=== PATIENT | female | born 1940 | race Caucasian/White ===

== ENCOUNTER 2023-01-11 09:49 | Day surgery (SDC) | payer OTHER, SELFPAY ==
[2023-01-01 13:00] VITALS: BMI 23.9
--- NOTE | 2023-01-11 06:00 | DI.RAD.S_ITS ---
PROCEDURE: XR KNEE RT 1TO2V INDICATIONS: LEFT TOTAL KNEE TECHNIQUE: 2 view(s) of the knee acquired. COMPARISON: None. FINDINGS: Bones: Patient is status post knee joint arthroplasty. Hardware components are in expected positions. Visualized bony structures are intact. Soft tissues: Overlying postoperative changes are noted. IMPRESSION: Expected appearance post right knee arthroplasty. Dictated by: Emilee Pugh M.D. on 01/11/2023 at 16:22 Approved by: Emilee Pugh M.D. on 01/11/2023 at 16:23
[2023-01-11] MEDS: ACETAMINOPHEN 325 MG TABLET 975 MG PO (10:03)
[2023-01-11] MEDS: CELECOXIB 200 MG CAPSULE PO (10:03)
[2023-01-11] MEDS: LACTATED RINGERS 1,000 ML 42 ML IV ×2 (10:04→12:52)
[2023-01-11 10:23] VITALS: BP 159/80; PULSE 79; RESP 16; TEMP 36.7; O2SAT 97; BMI 23.9
--- NOTE | 2023-01-11 11:00 | PM.PREOP ---
Pre-operative Note Interval Note History & Physical reviewed/Exam performed by Physician: Yes Changes to H&P: No
--- NOTE | 2023-01-11 11:03 | PM.PREOP ---
Pre-operative Note Interval Note History & Physical reviewed/Exam performed by Physician: Yes Changes to H&P: No
--- NOTE | 2023-01-11 11:21 | PM.OP.1 ---
Operative Date/Time/Diagnoses Date of procedure: 01/11/23 Time of procedure: 12:00 Pre-op diagnosis: Right knee arthritis Post-op diagnosis: same Procedure & Clinicians Procedure: Total knee arthroplasty right knee Same procedure as scheduled: Yes Indications: During the operation, the services of a physician surgical garment fitter were medically indicated and necessary to provide the exposure of the operative site for the surgical procedure and to maintain the limb in a proper position to carry out the operation safely and efficiently. Without a qualified catering assistant being present this would extended the operative procedure and made the procedure technically more difficult to perform. Surgeon: Sandy Whitt Preventive Medicine Specialist: Thanh Hidalgo Click Yes if Unassisted: Yes Anesthesia Type: General, Peripheral nerve block and Local Operative Notes Findings: Tricompartmental osteoarthritis large osteophytes. Eburnated bone Closure Type: primary Specimen(s): none sent Prosthetic devices, grafts, tissues, transplants, or devices: [employer] BCS femur cobalt chromium size 5 Tibia size 3 right Poly 9 mm Patella round 32 mm x 7.5 Estimated Blood Loss (mL): 100 Blood products transfused: none Tourniquet time (min): 80 Procedure in detail: Patient was seen in the preoperative area where the patient and site of surgery were identified in the operative knee was marked informed consent confirmed. This was the left knee. Patient received the appropriate preoperative antibiotics this was 2 g of Ancef. And other preoperative medications and was taken to the operating room placed on operating table in the supine position. Spinal anesthetic were administered. The operative extremity was then prepped and draped in the standard sterile fashion with a nonsterile tourniquet high on the thigh. Patient was placed on the green foam bolsters. A lateral post was placed at the level of the proximal thigh /trochanter area as a lateral post. Formal time-out procedure was performed confirming the patient's side and site of surgery and administration of appropriate preoperative antibiotics and implants were in the room accounted for. All were in agreement. Patient received a preoperative dose of tranexamic acid and then a 2nd dose at tourniquet release Patient was prepped and draped in the standard sterile fashion and the foot was placed into the [facility] leg rodriguez. This was taken into high flexion and the incision was marked out over the anterior knee to the level of the medial tubercle tubercle. The Esmarch was then used for exsanguination and the tourniquet was inflated to 250 mmHg. Was made through the skin and subcutaneous tissue in high flexion this was then brought down into 30? of flexion for the medial parapatellar arthrotomy. A marker pen was used to rosette the arthrotomy site for later repair. Joint fluid was evacuated. The anterior osteophytes and soft tissues were removed. Routine medial release was initially made along the medial proximal tibia with Bovie. The patella was 1st cut using the saw sized and prepped and then subluxed throughout the case and protected. This was sized to a 32 mm button for a 7.5 mm thickness to recreate the original dimensions of the patella. Lateral prominence of the patella was planed off. Poly was removed and the protector replaced and the patella was subluxed and the knee was taken back up into flexion and attention was returned to the femur. Then the rotational landmarks of Whitesides line and the trans epicondylar axis were marked on the femur with electrocautery. Then the intramedullary guide for the femur was created. The intramedullary canal was also opened for the tibia. The distal femoral cut was made in 6? of valgus using the intramedullary guide with the cut setting on 2+ as the patient did have a preoperative flexion contracture. The ACL and PCL released. The proximal tibia was then cut using the intramedullary guide, taking 9 mm off the less involved side this was the lateral plateau. The Bharat wing was used to check the slope through the guide. Second pass was made through the tibial cut guide with the saw after the cut tibia was removed, planned down about 1 more mm and further smoothen the resection surface. In extension remainders of the medial and lateral menisci were removed. The extension flexion gaps were then checked using both the flexion extension blocks. And was selected for a 9 mm poly femur was then sized and the rotation set using the posterior condyle referencing 3? of external rotation. This measured a size 5 to avoid anterior notching. Cut block was then placed and the anterior, posterior and chamfer cuts were then made. The posterior osteophytes and soft tissues were then removed. Then in extension the posterior capsule was injected with a mixture of 40 mL of 0.25% Marcaine and 20 mL of Exparel care to avoid excessive injection posterior laterally. The remainder of this was saved for the capsule and subcutaneous tissue and placed during cement curing. Attention was then returned to the tibia and this was prepared with the rotation set by the intramedullary/ extramedullary guide. Lined up with the tibial crest and the 2nd toe. The tibial trial was then pinned in place and the trial femoral components were placed. Then the intercondylar notch was cut through the femoral trial to create the box this was done with the distal than the proximal drill and then the box cut distally and then proximally. Next the insert was placed and the trial poly placed. This was stable in flexion and extension and there was a 0-135 degree range of motion. The tibia was then finished with the drill and flange cuts and then this was removed. All trials were removed. The wound and bone was irrigated with pulsatile lavage. This was then dried with a sponge. The components were verified and opened and the cement was mixed. Cement was applied to the components and then to the bone then the tibia was cemented in place 1st followed by the femur then the patella. Excess cement was removed. With care looking around the back of the knee. Remainder of the injection was injected around the capsule. trial poly was placed back in the leg was placed into extension for the patellar cementing. After this was cured approximately 15 minutes later and the dilute Betadine solution was placed for at least 3 minutes in the wound this was then irrigated out and the final poly was placed. This was a 9 mm poly. The tourniquet was released hemostasis was achieved. Final g of tranexamic acid was given IV at the time of tourniquet release. The capsule was closed with 1. Ethibond suture. Subcutaneous layer was closed with 3-0 Vicryl suture. Skin was closed with a running V lock suture Stratafix Monocryl type suture and Dermabond. An beckie dressing was placed given this patient's requirements of strong anticoagulation. An Rodger wrap was applied. Anesthetic was terminated the patient was woken from anesthesia and taken to recovery room in good condition. There no immediate complications from this procedure. The patient will be maintained on a standard total knee replacement protocol with weight-bearing as tolerated. Complications: none Post-operative Condition: stable Disposition: PACU Plan for aftercare: Weightbear as tolerated. Dressing will stay in place until follow-up. May shower with dressing but no soaking. Work on knee range of motion straightening into full extension and flexion. Restart Plavix postop day 1. Start aspirin 81 mg b.i.d.. For DVT prophylaxis. Follow up in 2 weeks.
[2023-01-11] MEDS: CEFAZOLIN 2 GM/100 ML PREMIX 100 ML IV ×2 (11:40)
--- NOTE | 2023-01-11 12:32 | SUR.OPER ---
Supine on padded OR bed, head on pillow, arms secured on padded arm boards at <90 degrees abduction, legs uncrossed, safety belt across abdomen, tape over blanket over left leg, right lateral thigh padded post in place, right leg prepped into sterile field, confirmed by Dr. Whitt.
[2023-01-11 13:45] VITALS: BP 118/64; PULSE 77; RESP 20; TEMP 36.9; O2SAT 95
[2023-01-11 13:50] VITALS: BP 122/71; PULSE 75; RESP 11; O2SAT 97
[2023-01-11 13:55] VITALS: BP 127/71; PULSE 73; RESP 11; O2SAT 95
[2023-01-11 14:00] VITALS: BP 141/70; PULSE 75; RESP 12; O2SAT 100
[2023-01-11] MEDS: ONDANSETRON 4 MG/2 ML INJ IV (14:00)
[2023-01-11] MEDS: OXYCODONE/ACETAMINOPHEN 5/325 TABLET 1 TAB PO (14:00)
--- NOTE | 2023-01-11 14:43 | SUR.PHASEII ---
incentive spirometer teaching performed. pt demonstrated back 1500.
[2023-01-11 15:15] VITALS: BP 140/70; PULSE 75; RESP 11; O2SAT 98
== END 2023-01-11 15:22 | disposition home or self-care (01) ==
LOC: OR 09:51 → AC 09:52
PROVIDERS: Referring Provider Orthopaedic Surgery Foot and Ankle Surgery; Visit Provider Orthopaedic Surgery Foot and Ankle Surgery
PROC: 0SRC0JZ Replacement of Right Knee Joint with Synthetic Substitute, Open Approach (ICD-10-PCS; CPT 27447; principal; 2023-01-11 11:15)
DX: M17.11 Unilateral primary osteoarthritis, right knee (principal); M25.761 Osteophyte, right knee
CPT/HCPCS: 27447; 73560; C1776; J0690; J1100; J2405; J2704; J3010